=== PATIENT | male | born 1980 | race Caucasian/White ===

== ENCOUNTER 2022-02-05 12:32 | Inpatient (IN) | payer OTHER ==
[2022-02-05] MEDS ORDERED: LOPERAMIDE HCL 2 MG CAPSULE PO PRN (13:07)
[2022-02-05] MEDS ORDERED: ONDANSETRON *ODT* 4 MG TABLET SL PRN (13:07)
[2022-02-05] MEDS ORDERED: MAGNESIUM CITRATE 300 ML BOTTLE PO PRN (13:07)
[2022-02-05] MEDS ORDERED: MAG HYDROX/AL HYDROX/SIMETH 30 ML UNIT-DOSE CUP PO PRN (13:07)
[2022-02-05] MEDS ORDERED: MAGNESIUM HYDROX 2400MG/30ML ORAL SUSPENSION 30 ML CUP PO PRN (13:07)
[2022-02-05] MEDS ORDERED: ACETAMINOPHEN 325 MG TABLET (FP) PO PRN ×2 (13:07)
[2022-02-05] MEDS ORDERED: MENTHOL/PHENOL 1 EACH UD MM PRN (13:07)
[2022-02-05] MEDS ORDERED: BISMUTH SUBSALICYLATE 262 MG/15 ML BTL PO PRN (13:07)
[2022-02-05 14:52] VITALS: BMI 27.5
[2022-02-05 17:53] LABS: HEMATOCRIT 46.7 % (35.4-49); HEMOGLOBIN 15.9 GM/dL (11.7-16.9); MCH 31.3 pg (25.7-33.7); MEAN PLT VOLUME 10.9 fl (7.5-11.1); PLATELET COUNT 149 10^3/uL (134-434); RBC 5.08 M/mm3 (4.00-5.60); RDW 13.7 % (11.9-15.9); WHITE BLOOD COUNT 5.8 K/mm3 (4.0-10.0)
[2022-02-05] MEDS: hydrOXYzine PAMOATE 25 MG CAPSULE (FP) PO SCH ×3 (17:58→22:22)
[2022-02-05] MEDS: NICOTINE 21 MG/24 HOURS TOPICAL PATCH TD SCH (17:58)
[2022-02-05] MEDS: diazePAM 5 MG TABLET PO SCH ×2 (17:59→22:24)
[2022-02-05 18:00] LABS: CALCIUM 9.2 mg/dL (8.5-10.1)
[2022-02-05 18:02] LABS: BLOOD UREA NITROGEN 13.5 mg/dL (7-18)
[2022-02-05] MEDS: NICOTINE 10 MG CARTRIDGE (INHALER) IH PRN (18:02)
[2022-02-05 18:05] LABS: BILIRUBIN,TOTAL 0.4 mg/dL (0.2-1); TOT PROT 7.2 g/dl (6.4-8.2)
[2022-02-05] MEDS: THIAMINE HCL 100 MG TABLET (FP) PO SCH (22:22)
[2022-02-05] MEDS: MELATONIN 5 MG TABLETS PO SCH (22:22)
[2022-02-06] MEDS: diazePAM 5 MG TABLET PO SCH ×4 (05:21→22:33)
[2022-02-06] MEDS: hydrOXYzine PAMOATE 25 MG CAPSULE (FP) PO SCH ×5 (05:22→22:32)
[2022-02-06] MEDS: PRENATAL VITAMINS W/ FOLIC ACID TABLET (FP) PO SCH (10:39)
[2022-02-06] MEDS: NICOTINE 21 MG/24 HOURS TOPICAL PATCH TD SCH (10:39)
[2022-02-06] MEDS: NICOTINE 10 MG CARTRIDGE (INHALER) IH PRN (17:43)
[2022-02-06] MEDS: MELATONIN 5 MG TABLETS PO SCH (22:32)
[2022-02-06] MEDS: THIAMINE HCL 100 MG TABLET (FP) PO SCH (22:33)
[2022-02-07] MEDS: diazePAM 5 MG TABLET PO SCH ×3 (05:23→22:28)
[2022-02-07] MEDS: hydrOXYzine PAMOATE 25 MG CAPSULE (FP) PO SCH ×5 (05:23→22:27)
[2022-02-07 08:08] LABS: SARS-CoV-2 NAA Not Detected (Not Detected)
[2022-02-07] MEDS: NICOTINE 10 MG CARTRIDGE (INHALER) IH PRN ×4 (10:08→22:34)
[2022-02-07] MEDS: NICOTINE 21 MG/24 HOURS TOPICAL PATCH TD SCH (10:08)
[2022-02-07] MEDS: PRENATAL VITAMINS W/ FOLIC ACID TABLET (FP) PO SCH (10:08)
[2022-02-07] MEDS: diazePAM 5 MG TABLET PO PRN ×2 (14:54→19:10)
[2022-02-07] MEDS: MELATONIN 5 MG TABLETS PO SCH (22:27)
[2022-02-07] MEDS: THIAMINE HCL 100 MG TABLET (FP) PO SCH (22:27)
[2022-02-07] MEDS: METHOCARBAMOL 500 MG TABLET PO PRN (22:31)
[2022-02-08] MEDS: IBUPROFEN 400 MG TABLET (FP) PO PRN ×2 (00:59→22:22)
[2022-02-08] MEDS: diazePAM 5 MG TABLET PO SCH ×2 (05:16→18:54)
[2022-02-08] MEDS: hydrOXYzine PAMOATE 25 MG CAPSULE (FP) PO SCH ×5 (05:17→22:20)
[2022-02-08] MEDS: NICOTINE 10 MG CARTRIDGE (INHALER) IH PRN ×5 (05:19→22:24)
[2022-02-08] MEDS: diazePAM 5 MG TABLET PO PRN ×2 (08:45→12:56)
[2022-02-08] MEDS: PRENATAL VITAMINS W/ FOLIC ACID TABLET (FP) PO SCH (10:03)
[2022-02-08] MEDS: NICOTINE 21 MG/24 HOURS TOPICAL PATCH TD SCH (10:04)
[2022-02-08] MEDS: MELATONIN 5 MG TABLETS PO SCH (22:20)
[2022-02-08] MEDS: THIAMINE HCL 100 MG TABLET (FP) PO SCH (22:20)
[2022-02-08] MEDS: METHOCARBAMOL 500 MG TABLET PO PRN (22:22)
[2022-02-09] MEDS: hydrOXYzine PAMOATE 25 MG CAPSULE (FP) PO SCH ×2 (05:11→10:07)
[2022-02-09] MEDS: NICOTINE 10 MG CARTRIDGE (INHALER) IH PRN ×2 (05:28→10:09)
[2022-02-09] MEDS ORDERED: diazePAM 5 MG TABLET PO ONE (06:00)
[2022-02-09 08:49] VITALS: BP 116/71; PULSE 89; TEMP 97.3
[2022-02-09] MEDS: PRENATAL VITAMINS W/ FOLIC ACID TABLET (FP) PO SCH (10:07)
[2022-02-09] MEDS: NICOTINE 21 MG/24 HOURS TOPICAL PATCH TD SCH (10:08)
== END 2022-02-09 10:25 | disposition home or self-care (01) | DRG 774 ==
LOC: YASAS 12:32 → Y3N 15:43
PROVIDERS: ADMIT Allergy & Immunology; ATTEND Allergy & Immunology
PROC: HZ2ZZZZ Detoxification Services for Substance Abuse Treatment (ICD-10-PCS; principal; 2022-02-05)
DX: F10.230 Alcohol dependence with withdrawal, uncomplicated (principal); F14.20 Cocaine dependence, uncomplicated; F12.10 Cannabis abuse, uncomplicated; F17.210 Nicotine dependence, cigarettes, uncomplicated; F19.24 Other psychoactive substance dependence with psychoactive substance-induced mood disorder; F32.A Depression, unspecified; G47.00 Insomnia, unspecified; Z91.14 Patient's other noncompliance with medication regimen
CPT/HCPCS: 36415; 80053; 85027; 86780; 87811; 93005; 93010; C9803-CS; U0003; U0005

== ENCOUNTER 2024-09-15 18:57 | Inpatient (IN) | payer OTHER ==
[2024-09-15 19:42] VITALS: BMI 26.6
[2024-09-15] MEDS ORDERED: LOPERAMIDE HCL 2 MG CAPSULE PO PRN (22:36)
[2024-09-15] MEDS ORDERED: BENZONATATE 200 MG CAPSULE PO PRN (22:36)
[2024-09-15] MEDS ORDERED: METHOCARBAMOL 500 MG TABLET PO PRN (22:36)
[2024-09-15] MEDS ORDERED: DICYCLOMINE HCL 10 MG CAPSULE PO PRN (22:36)
[2024-09-15] MEDS ORDERED: BISMUTH SUBSALICYLATE 524 MG/30 ML PO PRN (22:36)
[2024-09-15] MEDS ORDERED: guaiFENesin 600 MG TABLET.ER (FP) PO PRN (22:36)
[2024-09-15] MEDS ORDERED: MAGNESIUM HYDROX 2400MG/30ML ORAL SUSPENSION 30 ML CUP PO PRN (22:36)
[2024-09-15] MEDS ORDERED: POLYETHYLENE GLYCOL (HEALTHYLAX) 3350 17 GM PACKET PO PRN (22:36)
[2024-09-15] MEDS ORDERED: NALOXONE (NARCAN) HCL 4 MG/0.1 ML SPRAY NS PRN (22:36)
[2024-09-15] MEDS ORDERED: NALOXONE (NYS OPIOID OVERDOSE PROGRAM) 4 MG/0.1 ML SPRAY NS PRN (22:36)
[2024-09-15] MEDS ORDERED: NICOTINE POLACRILEX 2 MG GUM BUC PRN (22:36)
[2024-09-15] MEDS ORDERED: ACETAMINOPHEN 325 MG TABLET (FP) PO PRN (22:36)
[2024-09-15] MEDS ORDERED: MAG HYDROX/AL HYDROX/SIMETH 30 ML UNIT-DOSE CUP PO PRN (22:36)
[2024-09-15] MEDS ORDERED: BENZOCAINE/MENTHOL (CHLORASEPTIC ) LOZENGE MM PRN (22:36)
[2024-09-15] MEDS ORDERED: ONDANSETRON *ODT* 4 MG TABLET SL PRN (22:36)
[2024-09-15] MEDS ORDERED: IBUPROFEN 600 MG TABLET (FP) PO PRN (22:36)
[2024-09-15] MEDS ORDERED: chlordiazePOXIDE HCL 25 MG CAPSULE PO PRN (22:39)
[2024-09-15] MEDS ORDERED: hydrOXYzine PAMOATE 25 MG CAPSULE (FP) PO ONE (22:57)
[2024-09-15] MEDS ORDERED: chlordiazePOXIDE HCL 25 MG CAPSULE ONE (22:57)
[2024-09-15] MEDS ORDERED: IBUPROFEN 400 MG TABLET (FP) PO ONE (22:58)
[2024-09-15] MEDS: chlordiazePOXIDE HCL 25 MG CAPSULE PO SCH (23:10)
[2024-09-15] MEDS: hydrOXYzine PAMOATE 25 MG CAPSULE (FP) PO PRN (23:10)
[2024-09-15] MEDS: IBUPROFEN 400 MG TABLET (FP) PO PRN (23:11)
[2024-09-15] MEDS ORDERED: levETIRAcetam 500 MG TABLET (FP) PO ONE (23:14)
[2024-09-15] MEDS: levETIRAcetam 500 MG TABLET (FP) PO SCH (23:16)
[2024-09-16] MEDS: PRENATAL VITAMINS W/ FOLIC ACID TABLET (FP) PO SCH (10:05)
[2024-09-16] MEDS: NICOTINE 14 MG/24 HOURS TOPICAL PATCH TD SCH (10:07)
[2024-09-16 13:22] LABS: HEMATOCRIT 44.6 % (35.4-49); HEMOGLOBIN 15.1 GM/dL (11.7-16.9); MCH 31.2 pg (25.7-33.7); MCHC 33.7 g/dl (32.0-35.9); MEAN CELL VOLUME 92.6 fl (80-96); PLATELET COUNT 176 10^3/uL (134-434); RBC 4.82 M/mm3 (4.00-5.60); RDW 13.7 % (11.9-15.9); WHITE BLOOD COUNT 5.9 K/mm3 (4.0-10.0)
[2024-09-16 13:42] LABS: CHLORIDE 106 mmol/L (98-107); POTASSIUM 3.6 mmol/L (3.5-5.1); SODIUM 141 mmol/L (136-145)
[2024-09-16 13:57] LABS: ALBUMIN 3.2 g/dl (3.4-5.0); ANION GAP 9 mmol/L (4-13); BLOOD UREA NITROGEN 19.1 mg/dL (7-18); CALCIUM 8.7 mg/dL (8.5-10.1); CO2 26 mmol/L (21-32); GLUCOSE,RANDOM 104 mg/dL (74-106)
[2024-09-16 14:00] LABS: CREATININE 0.9 mg/dL (0.55-1.3); SGOT/AST 41 U/L (15-37); SGPT/ALT 37 U/L (13-61)
[2024-09-16 14:02] LABS: BILIRUBIN,TOTAL 0.6 mg/dL (0.2-1); TOT PROT 6.2 g/dl (6.4-8.2)
[2024-09-16 14:03] LABS: ALK PHOS 82 U/L (45-117)
[2024-09-16 21:02] VITALS: RESP 16
[2024-09-16] MEDS: THIAMINE 100 MG TABLET PO SCH (22:32)
[2024-09-16] MEDS: QUEtiapine FUMARATE 100 MG TABLET (FP) PO SCH (22:32)
[2024-09-17] MEDS: MELATONIN 5 MG TABLETS PO SCH (00:03)
[2024-09-17] MEDS: chlordiazePOXIDE HCL 25 MG CAPSULE PO SCH (05:33)
[2024-09-17 06:27] VITALS: BP 125/81; PULSE 93; TEMP 97.6
[2024-09-18] MEDS ORDERED: chlordiazePOXIDE HCL 10 MG CAPSULE PO PRN
[2024-09-18] MEDS ORDERED: chlordiazePOXIDE HCL 10 MG CAPSULE PO SCH (05:00)
[2024-09-19] MEDS ORDERED: chlordiazePOXIDE HCL 10 MG CAPSULE PO SCH (05:00)
[2024-09-20] MEDS ORDERED: chlordiazePOXIDE HCL 10 MG CAPSULE PO ONE (05:00)
== END 2024-09-17 08:55 | disposition left against medical advice (07) | DRG 770 ==
LOC: YASAS 18:57 → Y6N 22:53
PROVIDERS: ADMIT Allergy & Immunology; ATTEND Surgery
PROC: HZ2ZZZZ Detoxification Services for Substance Abuse Treatment (ICD-10-PCS; principal; 2024-09-15)
DX: F10.230 Alcohol dependence with withdrawal, uncomplicated (principal); F14.20 Cocaine dependence, uncomplicated; F17.210 Nicotine dependence, cigarettes, uncomplicated; F19.282 Other psychoactive substance dependence with psychoactive substance-induced sleep disorder; F19.24 Other psychoactive substance dependence with psychoactive substance-induced mood disorder; F43.10 Post-traumatic stress disorder, unspecified; F90.9 Attention-deficit hyperactivity disorder, unspecified type; Z56.0 Unemployment, unspecified; Z59.00 Homelessness unspecified
CPT/HCPCS: 36415; 80053; 80177; 80305; 80307; 85027; 86780; 93005; 93010

== ENCOUNTER 2024-10-12 11:38 | Inpatient (IN) | payer OTHER ==
[2024-10-12] MEDS ORDERED: ONDANSETRON *ODT* 4 MG TABLET SL PRN (12:54)
[2024-10-12] MEDS ORDERED: IBUPROFEN 400 MG TABLET (FP) PO PRN (12:54)
[2024-10-12] MEDS ORDERED: DICYCLOMINE HCL 10 MG CAPSULE PO PRN (12:54)
[2024-10-12] MEDS ORDERED: BENZOCAINE/MENTHOL (CHLORASEPTIC ) LOZENGE MM PRN (12:54)
[2024-10-12] MEDS ORDERED: BISMUTH SUBSALICYLATE 524 MG/30 ML PO PRN (12:54)
[2024-10-12] MEDS ORDERED: NALOXONE (NARCAN) HCL 4 MG/0.1 ML SPRAY NS PRN (12:54)
[2024-10-12] MEDS ORDERED: BENZONATATE 200 MG CAPSULE PO PRN (12:54)
[2024-10-12] MEDS ORDERED: guaiFENesin 600 MG TABLET.ER (FP) PO PRN (12:54)
[2024-10-12] MEDS ORDERED: POLYETHYLENE GLYCOL (HEALTHYLAX) 3350 17 GM PACKET PO PRN (12:54)
[2024-10-12] MEDS ORDERED: ACETAMINOPHEN 325 MG TABLET (FP) PO PRN (12:54)
[2024-10-12] MEDS ORDERED: MAG HYDROX/AL HYDROX/SIMETH 30 ML UNIT-DOSE CUP PO PRN (12:54)
[2024-10-12] MEDS ORDERED: chlordiazePOXIDE HCL 25 MG CAPSULE PO PRN (12:54)
[2024-10-12] MEDS ORDERED: NICOTINE POLACRILEX 2 MG GUM BUC PRN (12:54)
[2024-10-12] MEDS ORDERED: LOPERAMIDE HCL 2 MG CAPSULE PO PRN (12:54)
[2024-10-12 16:06] VITALS: BMI 25.7
[2024-10-12] MEDS: hydrOXYzine PAMOATE 25 MG CAPSULE (FP) PO PRN (17:08)
[2024-10-12] MEDS: IBUPROFEN 600 MG TABLET (FP) PO PRN (17:08)
[2024-10-12] MEDS: chlordiazePOXIDE HCL 25 MG CAPSULE PO SCH (17:08)
[2024-10-12] MEDS: AMOX TR/POT CLAV 875MG/125MG TABLETS (FP) PO SCH (22:33)
[2024-10-12] MEDS: THIAMINE 100 MG TABLET PO SCH (22:33)
[2024-10-12] MEDS: MELATONIN 5 MG TABLETS PO SCH (22:33)
[2024-10-12] MEDS: levETIRAcetam 500 MG TABLET (FP) PO SCH (22:34)
[2024-10-12] MEDS: QUEtiapine FUMARATE 100 MG TABLET (FP) PO SCH (22:34)
[2024-10-13 09:59] LABS: HEMATOCRIT 45.3 % (35.4-49); HEMOGLOBIN 14.8 GM/dL (11.7-16.9); MCH 30.7 pg (25.7-33.7); MCHC 32.6 g/dl (32.0-35.9); MEAN CELL VOLUME 94.2 fl (80-96); MEAN PLT VOLUME 11.5 fl (7.5-11.1); PLATELET COUNT 138 10^3/uL (134-434); RBC 4.81 M/mm3 (4.00-5.60); RDW 13.5 % (11.9-15.9); WHITE BLOOD COUNT 6.4 K/mm3 (4.0-10.0)
[2024-10-13 10:40] LABS: POTASSIUM 3.8 mmol/L (3.5-5.1)
[2024-10-13] MEDS: FOLIC ACID 1 MG TABLET (FP) PO SCH (10:41)
[2024-10-13] MEDS: PRENATAL VITAMINS W/ FOLIC ACID TABLET (FP) PO SCH (10:41)
[2024-10-13] MEDS: NICOTINE 14 MG/24 HOURS TOPICAL PATCH TD SCH (10:41)
[2024-10-13] MEDS: MAGNESIUM HYDROX 2400MG/30ML ORAL SUSPENSION 30 ML CUP PO PRN (10:41)
[2024-10-13 10:46] LABS: CALCIUM 9.2 mg/dL (8.5-10.1)
[2024-10-13 10:47] LABS: ALBUMIN 3.4 g/dl (3.4-5.0)
[2024-10-13 10:48] LABS: CREATININE 0.9 mg/dL (0.55-1.3)
[2024-10-13 10:49] LABS: BILIRUBIN,TOTAL 0.5 mg/dL (0.2-1); TOT PROT 6.8 g/dl (6.4-8.2)
[2024-10-13] MEDS: FLU VACCINE (FLULAVAL) PF 45 MCG/0.5 ML SYRINGE 2024-2025 IM ONE (12:10)
[2024-10-13] MEDS: METHOCARBAMOL 500 MG TABLET PO PRN (22:11)
[2024-10-14] MEDS: chlordiazePOXIDE HCL 25 MG CAPSULE PO SCH (05:34)
[2024-10-14 06:35] VITALS: BP 111/67; PULSE 78; RESP 16; TEMP 97.8
[2024-10-14] MEDS: NALOXONE (NYS OPIOID OVERDOSE PROGRAM) 4 MG/0.1 ML SPRAY NS SCH (09:41)
[2024-10-15] MEDS ORDERED: chlordiazePOXIDE HCL 10 MG CAPSULE PO PRN
[2024-10-15] MEDS ORDERED: chlordiazePOXIDE HCL 10 MG CAPSULE PO SCH (05:00)
[2024-10-16] MEDS ORDERED: chlordiazePOXIDE HCL 10 MG CAPSULE PO SCH (05:00)
[2024-10-17] MEDS ORDERED: chlordiazePOXIDE HCL 10 MG CAPSULE PO ONE (05:00)
== END 2024-10-14 08:37 | disposition home or self-care (01) | DRG 774 ==
LOC: YASAS 11:38 → Y6N 13:23
PROVIDERS: ADMIT Allergy & Immunology; ATTEND Surgery
PROC: HZ2ZZZZ Detoxification Services for Substance Abuse Treatment (ICD-10-PCS; principal; 2024-10-12)
DX: F10.230 Alcohol dependence with withdrawal, uncomplicated (principal); F14.20 Cocaine dependence, uncomplicated; F19.10 Other psychoactive substance abuse, uncomplicated; F17.213 Nicotine dependence, cigarettes, with withdrawal; F31.9 Bipolar disorder, unspecified; F19.280 Other psychoactive substance dependence with psychoactive substance-induced anxiety disorder; F19.282 Other psychoactive substance dependence with psychoactive substance-induced sleep disorder; F19.24 Other psychoactive substance dependence with psychoactive substance-induced mood disorder; F43.10 Post-traumatic stress disorder, unspecified; R56.9 Unspecified convulsions; R73.9 Hyperglycemia, unspecified
CPT/HCPCS: 36415; 80053; 80305; 80307; 85027; 86780; 90656; G0008

== ENCOUNTER 2024-10-17 08:37 | Inpatient (IN) | payer OTHER ==
[2024-10-17 09:21] VITALS: BMI 26.6
[2024-10-17] MEDS ORDERED: BENZONATATE 200 MG CAPSULE PO PRN (10:07)
[2024-10-17] MEDS ORDERED: NICOTINE POLACRILEX 4 MG GUM BUC PRN (10:07)
[2024-10-17] MEDS ORDERED: IBUPROFEN 400 MG TABLET (FP) PO PRN (10:07)
[2024-10-17] MEDS ORDERED: IBUPROFEN 600 MG TABLET (FP) PO PRN (10:07)
[2024-10-17] MEDS ORDERED: BENZOCAINE/MENTHOL (CHLORASEPTIC ) LOZENGE MM PRN (10:07)
[2024-10-17] MEDS ORDERED: MAG HYDROX/AL HYDROX/SIMETH 30 ML UNIT-DOSE CUP PO PRN (10:07)
[2024-10-17] MEDS ORDERED: DICYCLOMINE HCL 10 MG CAPSULE PO PRN (10:07)
[2024-10-17] MEDS ORDERED: LOPERAMIDE HCL 2 MG CAPSULE PO PRN (10:07)
[2024-10-17] MEDS ORDERED: NICOTINE POLACRILEX 4 MG LOZENGE BC PRN (10:07)
[2024-10-17] MEDS ORDERED: MAGNESIUM HYDROX 2400MG/30ML ORAL SUSPENSION 30 ML CUP PO PRN (10:07)
[2024-10-17] MEDS ORDERED: NALOXONE (NARCAN) HCL 4 MG/0.1 ML SPRAY NS PRN (10:07)
[2024-10-17] MEDS ORDERED: BISMUTH SUBSALICYLATE 524 MG/30 ML PO PRN (10:07)
[2024-10-17] MEDS ORDERED: chlordiazePOXIDE HCL 25 MG CAPSULE PO PRN (10:07)
[2024-10-17] MEDS ORDERED: ACETAMINOPHEN 325 MG TABLET (FP) PO PRN (10:07)
[2024-10-17] MEDS ORDERED: guaiFENesin 600 MG TABLET.ER (FP) PO PRN (10:07)
[2024-10-17] MEDS ORDERED: NICOTINE 21 MG/24 HOURS TOPICAL PATCH TD PRN (10:07)
[2024-10-17] MEDS ORDERED: POLYETHYLENE GLYCOL (HEALTHYLAX) 3350 17 GM PACKET PO PRN (10:07)
[2024-10-17] MEDS: levETIRAcetam 500 MG TABLET (FP) PO SCH (12:01)
[2024-10-17] MEDS: METHOCARBAMOL 500 MG TABLET PO PRN (12:05)
[2024-10-17] MEDS: hydrOXYzine PAMOATE 25 MG CAPSULE (FP) PO PRN (12:05)
[2024-10-17] MEDS: chlordiazePOXIDE HCL 25 MG CAPSULE PO SCH (17:21)
[2024-10-17] MEDS: MELATONIN 5 MG TABLETS PO SCH (22:27)
[2024-10-17] MEDS: THIAMINE 100 MG TABLET PO SCH (22:27)
[2024-10-18] MEDS: PRENATAL VITAMINS W/ FOLIC ACID TABLET (FP) PO SCH (10:22)
[2024-10-18 13:05] LABS: CHLORIDE 109 mmol/L (98-107); POTASSIUM 3.9 mmol/L (3.5-5.1); SODIUM 141 mmol/L (136-145)
[2024-10-18 13:10] LABS: BLOOD UREA NITROGEN 21.1 mg/dL (7-18); CALCIUM 8.5 mg/dL (8.5-10.1)
[2024-10-18 13:11] LABS: ALBUMIN 2.8 g/dl (3.4-5.0); ANION GAP 5 mmol/L (4-13); CO2 27 mmol/L (21-32); GLUCOSE,RANDOM 103 mg/dL (74-106)
[2024-10-18 13:14] LABS: CREATININE 0.9 mg/dL (0.55-1.3); HEMOGLOBIN 14.4 GM/dL (11.7-16.9); MCH 31.2 pg (25.7-33.7); MCHC 33.5 g/dl (32.0-35.9); MEAN CELL VOLUME 92.9 fl (80-96); MEAN PLT VOLUME 10.6 fl (7.5-11.1); PLATELET COUNT 130 10^3/uL (134-434); RBC 4.63 M/mm3 (4.00-5.60); RDW 13.6 % (11.9-15.9); SGOT/AST 23 U/L (15-37); SGPT/ALT 24 U/L (13-61); WHITE BLOOD COUNT 5.7 K/mm3 (4.0-10.0)
[2024-10-18 13:15] LABS: BILIRUBIN,TOTAL 0.3 mg/dL (0.2-1); TOT PROT 5.6 g/dl (6.4-8.2)
[2024-10-18 13:16] LABS: ALK PHOS 78 U/L (45-117)
[2024-10-18] MEDS: ONDANSETRON *ODT* 4 MG TABLET SL PRN (18:04)
[2024-10-18] MEDS: QUEtiapine FUMARATE 100 MG TABLET (FP) PO SCH (22:27)
[2024-10-19] MEDS: chlordiazePOXIDE HCL 25 MG CAPSULE PO SCH (05:41)
[2024-10-19] MEDS: NALOXONE (NYS OPIOID OVERDOSE PROGRAM) 4 MG/0.1 ML SPRAY NS SCH (09:23)
[2024-10-19 09:43] VITALS: BP 109/62; PULSE 93; RESP 18; TEMP 97.5
[2024-10-19] MEDS ORDERED: FLU VACCINE (FLULAVAL) PF 45 MCG/0.5 ML SYRINGE 2024-2025 IM ONE (12:00)
[2024-10-20] MEDS ORDERED: chlordiazePOXIDE HCL 10 MG CAPSULE PO PRN
[2024-10-20] MEDS ORDERED: chlordiazePOXIDE HCL 10 MG CAPSULE PO SCH (05:00)
[2024-10-21] MEDS ORDERED: chlordiazePOXIDE HCL 10 MG CAPSULE PO SCH (05:00)
[2024-10-22] MEDS ORDERED: chlordiazePOXIDE HCL 10 MG CAPSULE PO ONE (05:00)
== END 2024-10-19 09:30 | disposition left against medical advice (07) | DRG 770 ==
LOC: YASAS 08:37 → Y3N 10:48 → Y6N 11:15
PROVIDERS: ADMIT Surgery; ATTEND Surgery
PROC: HZ2ZZZZ Detoxification Services for Substance Abuse Treatment (ICD-10-PCS; principal; 2024-10-17)
DX: F10.230 Alcohol dependence with withdrawal, uncomplicated (principal); F14.20 Cocaine dependence, uncomplicated; F19.10 Other psychoactive substance abuse, uncomplicated; F17.210 Nicotine dependence, cigarettes, uncomplicated; F19.282 Other psychoactive substance dependence with psychoactive substance-induced sleep disorder; F19.280 Other psychoactive substance dependence with psychoactive substance-induced anxiety disorder; F19.24 Other psychoactive substance dependence with psychoactive substance-induced mood disorder; F31.9 Bipolar disorder, unspecified; F41.9 Anxiety disorder, unspecified; R79.89 Other specified abnormal findings of blood chemistry; Z88.8 Allergy status to other drugs, medicaments and biological substances
CPT/HCPCS: 36415; 80053; 80305; 80307; 85027; 86780; 93005; 93010; Q0162

== ENCOUNTER 2025-01-06 12:11 | Inpatient (IN) | payer OTHER ==
[2025-01-06 12:51] VITALS: BMI 27.4
[2025-01-06] MEDS ORDERED: BISMUTH SUBSALICYLATE 262 MG/15 ML BTL PO PRN (13:15)
[2025-01-06] MEDS ORDERED: LOPERAMIDE HCL 2 MG CAPSULE PO PRN (13:15)
[2025-01-06] MEDS ORDERED: guaiFENesin 600 MG TABLET.ER (FP) PO PRN (13:15)
[2025-01-06] MEDS ORDERED: IBUPROFEN 400 MG TABLET (FP) PO PRN (13:15)
[2025-01-06] MEDS ORDERED: NALOXONE (NARCAN) HCL 4 MG/0.1 ML SPRAY NS PRN (13:15)
[2025-01-06] MEDS ORDERED: BENZOCAINE/MENTHOL (CHLORASEPTIC ) LOZENGE MM PRN (13:15)
[2025-01-06] MEDS ORDERED: MAGNESIUM HYDROX 2400MG/30ML ORAL SUSPENSION 30 ML CUP PO PRN (13:15)
[2025-01-06] MEDS ORDERED: NICOTINE POLACRILEX 2 MG LOZENGE BC PRN (13:15)
[2025-01-06] MEDS ORDERED: MAG HYDROX/AL HYDROX/SIMETH 30 ML UNIT-DOSE CUP PO PRN (13:15)
[2025-01-06] MEDS ORDERED: DICYCLOMINE HCL 10 MG CAPSULE PO PRN (13:15)
[2025-01-06] MEDS ORDERED: IBUPROFEN 600 MG TABLET (FP) PO PRN (13:15)
[2025-01-06] MEDS ORDERED: ONDANSETRON *ODT* 4 MG TABLET SL PRN (13:15)
[2025-01-06] MEDS ORDERED: POLYETHYLENE GLYCOL (HEALTHYLAX) 3350 17 GM PACKET PO PRN (13:15)
[2025-01-06] MEDS ORDERED: BENZONATATE 200 MG CAPSULE PO PRN (13:15)
[2025-01-06] MEDS: diazePAM 5 MG TABLET PO SCH (17:24)
[2025-01-06] MEDS: MELATONIN 5 MG TABLETS PO SCH (22:50)
[2025-01-06] MEDS: levETIRAcetam 500 MG TABLET (FP) PO SCH (22:50)
[2025-01-06] MEDS: THIAMINE 100 MG TABLET PO SCH (22:50)
[2025-01-07] MEDS: diazePAM 5 MG TABLET PO SCH (05:59)
[2025-01-07] MEDS: METHOCARBAMOL 500 MG TABLET PO PRN (09:19)
[2025-01-07] MEDS: diazePAM 5 MG TABLET PO PRN (09:20)
[2025-01-07] MEDS: NICOTINE POLACRILEX 2 MG GUM BUC PRN (09:21)
[2025-01-07] MEDS: PRENATAL VITAMINS W/ FOLIC ACID TABLET (FP) PO SCH (09:30)
[2025-01-07] MEDS: NICOTINE 14 MG/24 HOURS TOPICAL PATCH TD SCH (09:37)
[2025-01-07] MEDS: ACETAMINOPHEN 325 MG TABLET (FP) PO PRN (11:11)
[2025-01-07 17:21] LABS: CHLORIDE 104 mmol/L (98-107); POTASSIUM 4.2 mmol/L (3.5-5.1); SODIUM 139 mmol/L (136-145)
[2025-01-07 17:23] LABS: HEMATOCRIT 44.5 % (35.4-49); HEMOGLOBIN 14.5 GM/dL (11.7-16.9); MCHC 32.6 g/dl (32.0-35.9); MEAN CELL VOLUME 92.2 fl (80-96); MEAN PLT VOLUME 11.4 fl (7.5-11.1); PLATELET COUNT 135 10^3/uL (134-434); RBC 4.83 M/mm3 (4.00-5.60); RDW 13.9 % (11.9-15.9); WHITE BLOOD COUNT 8.2 K/mm3 (4.0-10.0)
[2025-01-07 17:25] LABS: ALBUMIN 3.8 g/dl (3.4-5.0); ANION GAP 7 mmol/L (4-13); BLOOD UREA NITROGEN 16.6 mg/dL (7-18); CO2 29 mmol/L (21-32); GLUCOSE,RANDOM 69 mg/dL (74-106)
[2025-01-07 17:27] LABS: SGPT/ALT 27 U/L (13-61)
[2025-01-07 17:28] LABS: CREATININE 0.8 mg/dL (0.55-1.3); SGOT/AST 19 U/L (15-37)
[2025-01-07 17:29] LABS: BILIRUBIN,TOTAL 0.4 mg/dL (0.2-1); TOT PROT 6.6 g/dl (6.4-8.2)
[2025-01-07 17:30] LABS: ALK PHOS 66 U/L (45-117)
[2025-01-07] MEDS: QUEtiapine FUMARATE 100 MG TABLET (FP) PO SCH (21:50)
[2025-01-08] MEDS: diazePAM 5 MG TABLET PO SCH (06:32)
[2025-01-09] MEDS: diazePAM 5 MG TABLET PO ONE (05:33)
[2025-01-09 09:21] VITALS: BP 121/79; PULSE 88; RESP 18; TEMP 97.3
== END 2025-01-09 11:40 | disposition other institution (70) | DRG 774 ==
LOC: YASAS 12:11 → Y6N 14:44
PROVIDERS: ADMIT Allergy & Immunology; ATTEND Allergy & Immunology
PROC: HZ2ZZZZ Detoxification Services for Substance Abuse Treatment (ICD-10-PCS; principal; 2025-01-06)
DX: F10.230 Alcohol dependence with withdrawal, uncomplicated (principal); F13.20 Sedative, hypnotic or anxiolytic dependence, uncomplicated; F14.20 Cocaine dependence, uncomplicated; F17.210 Nicotine dependence, cigarettes, uncomplicated; F31.9 Bipolar disorder, unspecified; F20.9 Schizophrenia, unspecified; F41.9 Anxiety disorder, unspecified; F43.10 Post-traumatic stress disorder, unspecified; G40.909 Epilepsy, unspecified, not intractable, without status epilepticus; Z56.0 Unemployment, unspecified; Z59.00 Homelessness unspecified; Z88.8 Allergy status to other drugs, medicaments and biological substances
CPT/HCPCS: 36415; 80053; 80305; 80307; 85027; 86780; 87811

== ENCOUNTER 2025-01-09 11:44 | Inpatient (IN) | payer OTHER ==
[2025-01-09 13:11] VITALS: BMI 27.8
[2025-01-09] MEDS ORDERED: LOPERAMIDE HCL 2 MG CAPSULE PO PRN (16:43)
[2025-01-09] MEDS ORDERED: BENZONATATE 200 MG CAPSULE PO PRN (16:43)
[2025-01-09] MEDS ORDERED: guaiFENesin 600 MG TABLET.ER (FP) PO PRN (16:43)
[2025-01-09] MEDS ORDERED: MAGNESIUM HYDROX 2400MG/30ML ORAL SUSPENSION 30 ML CUP PO PRN (16:43)
[2025-01-09] MEDS ORDERED: METHOCARBAMOL 500 MG TABLET PO PRN (16:43)
[2025-01-09] MEDS ORDERED: POLYETHYLENE GLYCOL (HEALTHYLAX) 3350 17 GM PACKET PO PRN (16:43)
[2025-01-09] MEDS ORDERED: BENZOCAINE/MENTHOL (CHLORASEPTIC ) LOZENGE MM PRN (16:43)
[2025-01-09] MEDS ORDERED: IBUPROFEN 600 MG TABLET (FP) PO PRN (16:43)
[2025-01-09] MEDS ORDERED: MAG HYDROX/AL HYDROX/SIMETH 30 ML UNIT-DOSE CUP PO PRN (16:43)
[2025-01-09] MEDS: PRENATAL VITAMINS W/ FOLIC ACID TABLET (FP) PO SCH (17:25)
[2025-01-09] MEDS: MELATONIN 5 MG TABLETS PO SCH (21:33)
[2025-01-09] MEDS: PRAZOSIN HCL 1 MG CAPSULE PO SCH (21:33)
[2025-01-09] MEDS: MIRTAZAPINE 15 MG TABLET (FP) PO SCH (21:33)
[2025-01-09] MEDS: QUEtiapine FUMARATE 100 MG TABLET (FP) PO SCH (21:33)
[2025-01-09] MEDS: THIAMINE 100 MG TABLET PO SCH (21:33)
[2025-01-09] MEDS: levETIRAcetam 500 MG TABLET (FP) PO SCH (21:33)
[2025-01-10] MEDS ORDERED: QUEtiapine FUMARATE 50 MG TABLET PO SCH (10:00)
[2025-01-10] MEDS: NICOTINE 14 MG/24 HOURS TOPICAL PATCH TD SCH (10:47)
[2025-01-10] MEDS: QUEtiapine FUMARATE 50 MG TABLET PO SCH (13:11)
[2025-01-10] MEDS ORDERED: QUEtiapine FUMARATE 50 MG TABLET ONE (20:30)
[2025-01-12] MEDS: NICOTINE POLACRILEX 4 MG GUM BUC PRN (15:04)
[2025-01-13] MEDS: PRAZOSIN HCL 1 MG CAPSULE PO SCH (21:07)
[2025-01-15] MEDS: hydrOXYzine PAMOATE 25 MG CAPSULE (FP) PO PRN (16:58)
[2025-01-17] MEDS: IBUPROFEN 400 MG TABLET (FP) PO PRN (10:52)
[2025-01-21 07:00] VITALS: RESP 18
[2025-01-22 06:29] VITALS: BP 131/74; PULSE 118
[2025-01-22] MEDS: ACETAMINOPHEN 325 MG TABLET (FP) PO PRN (06:41)
[2025-01-22 07:12] VITALS: TEMP 100.2
== END 2025-01-22 09:09 | disposition home or self-care (01) | DRG 772 ==
LOC: YASAS 11:44 → Y3NR 11:46 → Y3W 01-10 09:37
PROVIDERS: ADMIT Neuromusculoskeletal Medicine & OMM; ATTEND Psychiatry & Neurology Pain Medicine
PROC: HZ42ZZZ Group Counseling for Substance Abuse Treatment, Cognitive-Behavioral (ICD-10-PCS; principal; 2025-01-09)
DX: F10.20 Alcohol dependence, uncomplicated (principal); F14.20 Cocaine dependence, uncomplicated; F13.20 Sedative, hypnotic or anxiolytic dependence, uncomplicated; F17.210 Nicotine dependence, cigarettes, uncomplicated; F20.9 Schizophrenia, unspecified; F31.9 Bipolar disorder, unspecified; F43.10 Post-traumatic stress disorder, unspecified; F41.9 Anxiety disorder, unspecified; F90.9 Attention-deficit hyperactivity disorder, unspecified type; G40.909 Epilepsy, unspecified, not intractable, without status epilepticus; Z56.0 Unemployment, unspecified; Z59.00 Homelessness unspecified
CPT/HCPCS: 36415; 80305; 86803